=== PATIENT | female | born 1975 | race Caucasian/White ===

== ENCOUNTER → 2019-12-24 | Outpatient (CLI) | payer SELFPAY | END | disposition home or self-care (01) | LOC: LABWHC1 08:35 | PROVIDERS: ATTEND Emergency Medicine | DX: Z20.828 Contact with and (suspected) exposure to other viral communicable diseases (principal) | CPT/HCPCS: U0003; C9803 ==

== ENCOUNTER → 2022-01-30 | Outpatient (CLI) | payer OTHER ==
--- NOTE | 2022-01-30 12:15 | XR ---
EXAMINATION TYPE: XR ankle complete 3 views RT, XR foot complete 3 views RT DATE OF EXAM: 01/30/2022 COMPARISON: NONE HISTORY: 46-year-old female right foot and ankle pain after twisting injury, S93.401A, S93.601A FINDINGS: Ankle: Mild soft tissue swelling. Small posterior calcaneal spur. More small to moderate-sized plantar calca marina spur. Os peroneum. Ankle mortise is congruent with preservation of the distal tibiofibular overl ap. Talar dome appears intact. Small delineation to the Achilles tendon. Foot: Bipartite tibial sesamoid. No acute fracture, subluxation, or dislocation is seen. IMPRESSION (ankle and foot): 1. Mild soft tissue swelling at the ankle. No acute osseous abnormality seen. 2. Posterior and plantar heel spurs.
== END | disposition home or self-care (01) ==
LOC: RADXRMAIN 11:26
PROVIDERS: ATTEND Emergency Medicine
DX: M77.31 Calcaneal spur, right foot (principal); M77.32 Calcaneal spur, left foot

== ENCOUNTER → 2022-02-08 | Outpatient (CLI) | payer OTHER ==
--- NOTE | 2022-02-08 16:04 | XR ---
EXAMINATION TYPE: XR ankle complete RT DATE OF EXAM: 02/08/2022 COMPARISON: NONE HISTORY: Pain FINDINGS: Three views of the ankle demonstrate the ankle mortise to be intact and symmetric. The joint spaces are preserved. The osseous structures are intact. Large calcaneal spurs are noted. Soft tissue pat a suggested. IMPRESSION: 1. No definite acute fracture or dislocation, if symptoms persist follow-up study in 7 to 10 days wou ld be suggested.
== END | disposition home or self-care (01) ==
LOC: RADXRMAIN 15:47
PROVIDERS: ATTEND Emergency Medicine
DX: S93.401D Sprain of unspecified ligament of right ankle, subsequent encounter (principal)

== ENCOUNTER → 2023-04-26 | Outpatient (CLI) | payer BC ==
--- NOTE | 2023-05-01 11:58 | MM ---
Reason for Exam: Screening (asymptomatic). Patient History: Menarche at age 15. Last menstrual period: 04/26/2023 Risk Values: Becca 5 year model risk: 0.6%. NCI Lifetime model risk: 7.0%. Tissue Density: There are scattered fibroglandular densities. Findings: Analyzed By CAD. There are 2 asymmetries right breast MLO view posterior depth at 14 cm and 8 cm from the nipple superiorly. Left breast:. There is no suspicious group of microcalcifications or new suspicious mass. Overall Assessment: Incomplete: need additional imaging evaluation, BI-RAD 0 Management: Diagnostic Mammogram of the right breast. Spot compression imaging and MLO view and ML view. [facility] will attempt to contact patient to return for supplemental views and ultrasound if indicated. Patient should continue monthly self-breast exams. A clinical breast exam by your physician is recommended on an annual basis. This exam should not preclude additional follow-up of suspicious palpable abnormalities. Note on Becca scores and lifetime risk: 1. A Becca score greater than 3% is considered moderate risk. If this is the case, consider specialist referral to assess eligibility for a risk reducing agent. 2. If overall lifetime risk for the development of breast cancer is 20% or higher, the patient may qualify for future screening with alternating mammogram and breast MRI. Electronically signed and approved by: Walter Romero DO
== END | disposition home or self-care (01) ==
LOC: RADMAMWWP 13:31
PROVIDERS: ATTEND Family Medicine
DX: Z12.31 Encounter for screening mammogram for malignant neoplasm of breast (principal)
CPT/HCPCS: 77063; 77067

== ENCOUNTER → 2023-05-08 | Outpatient (CLI) | payer BC ==
--- NOTE | 2023-05-08 08:57 | MM ---
Reason for Exam: Additional evaluation requested from abnormal screening. Last screening mammogram was performed less than 1 month ago. Patient History: Menarche at age 15. Patient has no children. Last menstrual period: 04/26/2023 Risk Values: Becca 5 year model risk: 0.9%. NCI Lifetime model risk: 10.6%. Prior Study Comparison: 04/26/2023 Bilateral MG 3D screening mammo w/cad, [facility]. Tissue Density: Right: There are scattered fibroglandular densities. Findings: Analyzed By CAD. And if concern persists in the upper outer quadrant 8.3 cm from the nipple on CC view and 12.9 cm from nipple on MLO view. This measures up to 11 mm. Other area posterior to the nipple compresses out approximately 8.0 cm from nipple in the right upper quadrant. Overall Assessment: Incomplete: need additional imaging evaluation, BI-RAD 0 Management: Diagnostic Breast Ultrasound of the right breast. Results were given to the patient verbally at the time of exam. Patient should continue monthly self-breast exams. A clinical breast exam by your physician is recommended on an annual basis. This exam should not preclude additional follow-up of suspicious palpable abnormalities. Note on Becca scores and lifetime risk: 1. A Becca score greater than 3% is considered moderate risk. If this is the case, consider specialist referral to assess eligibility for a risk reducing agent. 2. If overall lifetime risk for the development of breast cancer is 20% or higher, the patient may qualify for future screening with alternating mammogram and breast MRI. Electronically signed and approved by: Walter Romero DO
--- NOTE | 2023-05-08 09:19 | USB ---
Reason for Exam: Additional evaluation requested from abnormal screening. Patient History: Menarche at age 15. Patient has no children. Risk Values: Becca 5 year model risk: 0.9%. NCI Lifetime model risk: 10.6%. Technique: Method: Targeted. Patient Position: Supine. Prior Study Comparison: 04/26/2023 Bilateral MG 3D screening mammo w/cad, [facility]. Findings: The upper outer quadrant of the right breast, the axilla of the right breast and the retroareolar of the right breast were scanned. No solid or cystic masses are identified.. Overall Assessment: Negative, BI-RAD 1 Management: Diagnostic Mammogram of the right breast in 6 months. A clinical breast exam by your physician is recommended on an annual basis and results should be correlated with mammographic findings. This exam should not preclude additional follow-up of suspicious palpable abnormalities. Results were given to the patient verbally at the time of exam. Electronically signed and approved by: Jorje Amaya D.O. Radiologis
== END | disposition home or self-care (01) ==
LOC: RADMAMWWP 08:10
PROVIDERS: ATTEND Family Medicine
DX: R92.321 Mammographic fibroglandular density, right breast (principal)
CPT/HCPCS: 77061; 77065